=== PATIENT | female | born 1950 | race American Indian/Alaskan Native ===

== ENCOUNTER 2018-10-06 15:52 | Emergency (ER) | payer BC ==
[2018-10-06 15:53] VITALS: BMI 21.2
[2018-10-06 16:19] VITALS: BP 105/68; PULSE 81; TEMP 98.4; O2SAT 98
--- NOTE | 2018-10-06 16:39 | C.PDOC ---
History Of Present Illness 67 year old female presents to the ED complaining of left hip pain for 3 days. Describes pain as sharp and stabbing. Denies any trauma or falls. 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 Denies any new weakness, numbness, incontinence, dysuria, abdominal pain, nausea, vomiting. Time Seen by Provider: 10/06/18 16:27 Chief Complaint (Nursing): Hip Pain History Per: Patient History/Exam Limitations: no limitations Onset/Duration Of Symptoms: Days Current Symptoms Are (Timing): Still Present Past Medical History Reviewed: Historical Data, Nursing Documentation, Vital Signs Vital Signs: Last Vital Signs Temp 98.4 F 10/06/18 16:17 Pulse 81 10/06/18 16:17 Resp 20 10/06/18 16:17 BP 105/68 10/06/18 16:17 Pulse Ox 98 10/06/18 16:17 - Medical History PMH: Anxiety, Arthritis, HTN, Kidney Stones Denies: Depression Other Surgeries: Hx of surgeries - [facility] Procedures INJECT/INFUSE NEC (01/25/13) Family History: States: No Known Family Hx - Social History Hx Tobacco Use: No Hx Alcohol Use: No Hx Substance Use: No Review Of Systems Constitutional: Negative for: Fever, Chills Gastrointestinal: Negative for: Nausea, Vomiting, Abdominal Pain, Diarrhea Genitourinary: Negative for: Dysuria, Incontinence, Hematuria Musculoskeletal: Positive for: Other (left hip pain) Neurological: Negative for: Weakness, Numbness Physical Exam - Physical Exam Appears: Non-toxic, No Acute Distress Skin: Warm, Dry, No Rash Head: Normacephalic Eye(s): bilateral: Normal Inspection Nose: Normal Oral Mucosa: Moist Neck: Supple Chest: Symmetrical Back: No CVA Tenderness, No Vertebral Tenderness, No Decreased ROM, No Paraspinal Tenderness, Other (tenderness to left piriformis muscle. No hip or Iliac spine tenderness. ) Extremity: Bilateral: Atraumatic, Hips Non-Tender, Normal Color And Temperature, Normal ROM Neurological/Psych: Oriented x3, Normal Speech Gait: Steady ED Course And Treatment O2 Sat by Pulse Oximetry: 98 (RA) Pulse Ox Interpretation: Normal Medical Decision Making Medical Decision Making: Plan - Flexeril 10mg PO - Toradol 30mg IM Disposition Counseled Patient/Family Regarding: Diagnosis, Need For Followup - Disposition Referrals: Abdoul Rojas MD [Staff Provider] - Disposition: HOME/ ROUTINE Disposition Time: 17:25 Condition: GOOD Additional Instructions: You can apply heat to area Take Tylenol 500mg for any pain Take Ibuprofen as needed for pain every 6-8 hours, with food to not upset stomach Take Flexeril every 8 hours as needed for muscular pain and spasm, caution may cause drowsiness Prescriptions: Cyclobenzaprine [Cyclobenzaprine HCl] 10 mg PO TID #30 tab Ibuprofen [Motrin] 600 mg PO Q8 #30 tab Instructions: Muscle and Bone Pain (DC), Back Stretches on Floor Forms: [employer] (Kosovan) - POA Present On Arrival: None - Clinical Impression Clinical Impression: Piriformis muscle pain - PA / REHABILITATION LIAISON / Resident Statement MD/DO has reviewed & agrees with the documentation as recorded. - Scribe Statement The provider has reviewed the documentation as recorded by the Scribe Sandra Garcia All medical record entries made by the Scribe were at my direction and personally dictated by me. I have reviewed the chart and agree that the record accurately reflects my personal performance of the history, physical exam, medical decision making, and the department course for this patient. I have also personally directed, reviewed, and agree with the discharge instructions and disposition.
[2018-10-06 17:33] VITALS: RESP 18
== END 2018-10-06 17:33 | disposition home or self-care (01) ==
LOC: C.ER 15:52
DX: M79.10 Myalgia, unspecified site (principal); I10 Essential (primary) hypertension; Z87.442 Personal history of urinary calculi
CPT/HCPCS: 96372; 99284; J1885